=== PATIENT | female | born 1970 | race Caucasian/White ===

== ENCOUNTER 2016-11-29 19:10 | Emergency (ER) | payer BC ==
--- NOTE | 2016-11-29 19:55 | UC ---
Respiratory Complaint HPI - HPI Summary HPI Summary: 46 YEAR OLD FEMALE PRESENTS WITH COMPLAINS OF RIGHT ANKLE PAIN AND COUGH. - History of Current Complaint Stated Complaint: COUGH Time Seen by Provider: 11/29/16 19:54 - Allergies/Home Medications Allergies/Adverse Reactions: Allergies Allergy/AdvReac Type Severity Reaction Status Date / Time Aspirin Allergy Diarrhea Verified 11/29/16 19:51 Home Medications: Home Medications Acetaminophen TAB* [Tylenol TAB*] 1,500 mg PO Q6H PRN 11/29/16 [History Confirmed 11/29/16] Adalimumab [Humira Pen] 40 mg SC WEEKLY 11/29/16 [History Confirmed 11/29/16] Dextromethorphan-Guaifenesin [Guaifenesin/Dextromethorp 400-20 mg] 1 tab PO BID PRN 11/29/16 [History Confirmed 11/29/16] Metoprolol Succinate XL TAB* [Toprol XL TAB*] 25 mg PO DAILY 11/29/16 [History Confirmed 11/29/16] Norgestimate-Eth Estradiol(NF) [Ortho Tri-Cyclen (NF)] 1 tab PO DAILY 11/29/16 [ History Confirmed 11/29/16] PARoxetine HCL TAB* [Paxil TAB*] 10 mg PO DAILY 11/29/16 [History Confirmed ] azaTHIOprine TAB(*) [Imuran TAB(*)] 100 mg PO DAILY 11/29/16 [History Confirmed 11/29/16] Review of Systems Constitutional: Negative Skin: Negative Eyes: Negative ENT: Nasal Discharge, Sinus Congestion, Sinus Pain/Tenderness Respiratory: Negative Cardiovascular: Negative Gastrointestinal: Negative Genitourinary: Negative Motor: Negative Neurovascular: Negative Musculoskeletal: Decreased ROM, Other: - RIGHT ANKLE SWELLING Neurological: Negative Psychological: Negative All Other Systems Reviewed And Are Negative: Yes Physical Exam Triage Information Reviewed: Yes Eye Exam: Normal ENT: Positive: Pharyngeal erythema, Nasal congestion, Other: - SINUS CONGESTION Dental Exam: Normal Neck exam: Normal Neck: Positive: 1 Respiratory Exam: Normal Cardiovascular Exam: Normal Abdominal Exam: Normal Musculoskeletal: Positive: Other: - RIGHT ANKLE SWELLING Neurological Exam: Normal Psychological Exam: Normal Skin Exam: Normal Respiratory Course/Dx - Differential Dx/Diagnosis Provider Diagnoses: SINUSITIS. RIGHT ANKLE SPRAIN Discharge - Discharge Plan Condition: Stable Disposition: HOME Prescriptions: Amoxicillin/Clavulanate TAB* [Augmentin TAB 875*] 875 mg PO BID #20 tab LoraTADine TAB(NF) [Claritin 10 MG TAB(NF)] 10 mg PO DAILY #30 tab guaiFENesin/CODIEN 100MG-10MG* [Robitussin AC 100Mg-10Mg*] 5 ml PO Q6H PRN #120 udc MDD 20 ML PRN Reason: Cough Patient Education Materials: Ankle Sprain (ED), Cold Symptoms (ED) Referrals: Claudia Vergara PA [Physician Accelerator Operator] - As Soon As Possible
[2016-11-29 20:00] VITALS: BP 121/82
--- NOTE | 2016-11-29 20:58 | RAD ---
Indication: RIGHT ankle pain following twisting injury yesterday. Lateral pain and soft tissue swelling. Comparison: No relevant prior exams available on the [facility] for comparison. Technique: AP, mortise, and lateral views RIGHT ankle. REPORT AND IMPRESSION: Normal articular alignment. Negative for fracture or osteochondral lesion. Soft tissue swelling most prominent over the lateral malleolus. Suggestion of small talocrural joint effusion at the posterior joint recess.
== END 2016-11-29 21:12 | disposition home or self-care (01) ==
LOC: UCCORT 19:10
DX: J32.9 Chronic sinusitis, unspecified (principal); S93.401A Sprain of unspecified ligament of right ankle, initial encounter; X58.XXXA Exposure to other specified factors, initial encounter; Y93.9 Activity, unspecified; Y92.9 Unspecified place or not applicable
CPT/HCPCS: 99213; G0463

== ENCOUNTER 2018-05-22 08:56 | Emergency (ER) | payer OTHER ==
[2018-05-22 09:13] VITALS: BP 116/84
--- NOTE | 2018-05-22 09:23 | UC ---
Respiratory Complaint HPI - HPI Summary HPI Summary: cough x 1 week cough is productive with yellow sputum + chest tightness, sob , low grade fever, chills, nasal congestion pt. is concern about having pneumonia - History of Current Complaint Chief Complaint: UCRespiratory Stated Complaint: COUGH CONGESTION Time Seen by Provider: 05/22/18 09:13 Hx Obtained From: Patient Hx Last Menstrual Period: 05/19/18 ?: No Onset/Duration: Gradual Onset, Lasting Weeks - 1, Still Present Severity Initially: Moderate Severity Currently: Moderate Pain Intensity: 0 Character: Cough: Productive - yellow sputum Aggravating Factors: Exertion, Deep Breaths Alleviating Factors: Nothing Associated Signs And Symptoms: Positive: Dyspnea, Fever, Chills, URI, Nasal Congestion. Negative: Pleuritic Chest Pain, Wheezing, Hemoptysis, Dizziness, Calf Pain, Calf Swelling, Edema, Hoarseness, Sinus Discomfort - Allergies/Home Medications Allergies/Adverse Reactions: Allergies Allergy/AdvReac Type Severity Reaction Status Date / Time aspirin Allergy Diarrhea Verified 05/22/18 09:07 Home Medications: Home Medications Guaifenesin/Phenylephrine HCl [Chest Congestion Relief PE] 1 each PO TID PRN [History Confirmed 05/22/18] PMH/Surg Hx/FS Hx/Imm Hx - Additional Past Medical History Additional PMH: crohn's colitis, anxiety [ End ] Cardiovascular History: Hypertension - Surgical History Surgical History: Yes Surgery Procedure, Year, and Place: multiple fistula procedures - Family History Known Family History: Positive: Hypertension - Social History Alcohol Use: Occasionally Substance Use Type: None Smoking Status (MU): Never Smoked Tobacco Review of Systems All Other Systems Reviewed And Are Negative: Yes Constitutional: Positive: Fever, Chills, Fatigue Skin: Positive: Negative Eyes: Positive: Negative ENT: Positive: Nasal Discharge Respiratory: Positive: Shortness Of Breath, Cough Cardiovascular: Positive: Negative Is Patient Immunocompromised?: No Physical Exam Triage Information Reviewed: Yes Appearance: Well-Appearing, No Pain Distress, Well-Nourished Vital Signs: Initial Vital Signs Temp 97.8 F 05/22/18 09:09 Pulse 57 05/22/18 09:09 Resp 15 05/22/18 09:09 BP 116/84 05/22/18 09:09 Pulse Ox 99 05/22/18 09:09 Vital Signs Reviewed: Yes Eye Exam: Normal Eyes: Positive: Conjunctiva Clear ENT: Positive: Normal ENT inspection, Hearing grossly normal, Pharynx normal, Nasal drainage, TMs normal. Negative: Tonsillar swelling, Tonsillar exudate Neck: Positive: Supple, Nontender, No Lymphadenopathy Respiratory: Positive: Chest non-tender, Lungs clear, Normal breath sounds, No respiratory distress Cardiovascular: Positive: RRR, No Murmur, Pulses Normal Skin Exam: Normal UC Diagnostic Evaluation - Laboratory O2 Sat by Pulse Oximetry: 99 Diagnostic Studies Comment: chest xray : IMPRESSION: NO EVIDENCE FOR ACTIVE CARDIOPULMONARY DISEASE. Respiratory Course/Dx - Differential Dx/Diagnosis Provider Diagnosis: Bronchitis Discharge - Sign-Out/Discharge Documenting (check all that apply): Patient Departure All imaging exams completed and their final reports reviewed: Yes - Discharge Plan Condition: Stable Disposition: HOME Patient Education Materials: Acute Bronchitis (ED) Referrals: Maite Radford MD [Primary Care Provider] - If Needed - Billing Disposition and Condition Condition: STABLE Disposition: Home
== END 2018-05-22 10:07 | disposition home or self-care (01) ==
LOC: UCCORT 08:56
DX: J40 Bronchitis, not specified as acute or chronic (principal); I10 Essential (primary) hypertension; Z88.6 Allergy status to analgesic agent
CPT/HCPCS: 71046; 99211; G0463